=== PATIENT | male | born 1995 | race Hispanic/Latino ===

== ENCOUNTER 2019-05-21 00:38 | Emergency (ER) | payer OTHER, SELFPAY ==
[2019-05-21] MEDS ORDERED: Adacel (T-DAP) 0.5 ML SYRINGE ONE (01:34)
[2019-05-21] MEDS ORDERED: Silver Sulfadiazine 1% Cream 50 GM JAR ONE (01:52)
== END 2019-05-21 02:01 | disposition home or self-care (01) ==
LOC: ERS 00:38
DX: T23.6 Corrosion of second degree of wrist and hand (principal); X31.XXXA Exposure to excessive natural cold, initial encounter
CPT/HCPCS: 90471; 90715

== ENCOUNTER 2023-11-01 14:57 | Emergency (ER) | payer OTHER | END 2023-11-01 15:45 | disposition home or self-care (01) | LOC: ERS 14:57 | DX: T16.1XXA Foreign body in right ear, initial encounter (principal); I10 Essential (primary) hypertension | CPT/HCPCS: 69200; 99282 ==